=== PATIENT | female | born 1990 | race Caucasian/White ===

== ENCOUNTER 2017-12-10 21:51 | Inpatient (IN) | payer OTHER ==
[2017-12-10] MEDS ORDERED: Butorphanol Tartrate 1 MG/ML VIAL SLOW IVP PRN (22:23)
[2017-12-10] MEDS ORDERED: Lidocaine 1% (PF) 30 ML VIAL SC PRN (22:23)
[2017-12-10] MEDS ORDERED: Promethazine HCl 25 MG/ML VIAL IM PRN (22:23)
[2017-12-10] MEDS ORDERED: HYDROcodone/Acetaminophen 5/325 mg Tablet PO PRN ×2 (22:23)
[2017-12-10] MEDS: Lactated Ringer's 1,000 ML IV SCH (22:28)
--- NOTE | 2017-12-10 22:28 | PDOC.LDHP ---
Labor and Delivery H&P HPI: @5328 Location: L&D patient of outside MD Reason for eval: contractions since yesterday pm HPI: 27 yo with 3 prior SVDs (last 11/2016) here at term (38 weeks) by her account, with contractions. No VB or ROM. Denies issues. Came here for labor. her MD does not come here according to her. States all labs were "normal " in . reports FM. review of systems: complete ROS completed and as per HPI. Current gestational age (weeks): 38 Dating criteria: last menstrual period Grav: 4 Para: 3 (Last was 11/2016) Current complications: none Abnormal US findings: No (unknown) Current medications: pre- vitamins Previous surgical history: none Allergies/Adverse Reactions: Allergies Allergy/AdvReac Type Severity Reaction Status Date / Time azithromycin Allergy Short of Verified 11/22/16 22:34 Breath - Physical Exam General: NAD Heart: RRR Lungs: CTAB Abdomen: gravid Extremeties: no edema FHT: category 1 [place] contractions every: every 3-5 - Vaginal Exam cm dilated: 6 Effacement: 75% - Assessment L&D Assessment: term patient in labor - Plan Plan: admit to L&D, labor augmentation if indicated, informed consent obtained, anesthesia consult for pain management, other (Unknown GBS, and no risk factors. Will notify pedi. Order routine OB labs. Get GC/Chl from vaginal swab. Await labor progress.)
[2017-12-10 22:50] LABS: Hemoglobin 8.6 g/dL (12.0-16.0); Mean Corpuscular HGB CONC 33.1 g/dL (32.0-36.0); Mean Corpuscular Hemoglobin 24.1 pg (27.0-31.0); Mean Corpuscular Volume 72.8 fl (81.0-99.0); Platelet Count 212 thou/uL (130-400); Red Blood Cell (RBC) Count 3.57 mill/uL (4.20-5.40); White Blood Cell (WBC) Count 9.2 thou/uL (4.8-10.8)
[2017-12-10] MEDS ORDERED: DISCONTINUE ALL PREVIOUS NARCOTICS FS SCH (23:00)
[2017-12-10 23:19] VITALS: BMI 24.7
[2017-12-10] MEDS: Bupivacaine 0.5% 20 ML, fentaNYL Citrate/PF 400 MCG in Sodium Chloride 0.9% 72 ML EPIDURAL SCH (23:56)
[2017-12-11] MEDS ORDERED: Lidocaine 1% (PF) 30 ML VIAL SC PRN (00:12)
[2017-12-11] MEDS ORDERED: NS / Oxytocin 40 units/1000ml 1,000 ML IV PRN (00:12)
--- NOTE | 2017-12-11 00:12 | PDOC.EVN ---
Event Note - Event Note Event Note: [facility] record states GBS positive..will order PCN
[2017-12-11] MEDS ORDERED: Penicillin G Potassium 5 MILL.UNITS in Sodium Chloride 0.9% 100 ML IVPB SCH (00:15)
--- NOTE | 2017-12-11 00:15 | PDOC.EVN ---
Event Note - Event Note Event Note: HCT 26...noted
[2017-12-11 00:53] LABS: Amphetamine Not Detected (NotDetected); Barbiturates Screen Not Detected (NotDetected); Benzodiazepine Screen Not Detected (NotDetected); Cocaine Metabolite Screen Not Detected (NotDetected); Medtox Control Line Valid? VALID (VALID); Medtox Reader # READER 4; Methadone Not Detected (NotDetected); Methamphetamine Not Detected (NotDetected); Opiate Screen Not Detected (NotDetected); Oxycodone Screen Not Detected (NotDetected); Phencyclidine (PCP) Not Detected (NotDetected); THC/Cannabinoid Screen Not Detected (NotDetected); Tricyclic Screen Not Detected (NotDetected)
[2017-12-11 01:16] LABS: Syphilis Antibody Nonreactive (Nonreactive); Syphilis Antibody Index 0.02 S/CO (<1.00 Non-Reactive)
[2017-12-11] MEDS: Lactated Ringer's 1,000 ML IV SCH ×2 (01:18→07:43)
[2017-12-11 01:27] LABS: HBSAg Index 0.19 S/CO (0-0.99); HIV (1/2) Antibody/Antigen Non-Reactive (NonReactive); HIV 1/2 INDEX 0.09 S/CO (<1.00); Hep B Surf Ag Non-Reactive S/CO (NonReactive)
--- NOTE | 2017-12-11 04:04 | PDOC.LDPN ---
Labor & Delivery Progress Note - Subjective Subjective: comfortable (has epidural) - Objective Vital signs reviewed and normal: yes Uterine fundus: non tender SVE: per RN Dilation: 6 Effacement: 75% Station: -1 FHT: category 1 [place] contractions every: every 4-6 - Assessment (1) Active labor at term Code(s): [id number] - Current Visit: Yes Status: Acute (2) Anemia affecting Code(s): O99.019 - ANEMIA COMPLICATING , UNSPECIFIED TRIMESTER Current Visit: Yes Status: Acute Plan: continue plan of care, other (Will recheck in 1-2 hours and if not changed , will AROM and place IUPC.)
[2017-12-11] MEDS ORDERED: ePHEDrine/0.9% NaCl/PF SYRINGE 50 mg/10 ml SLOW IVP PRN (04:52)
[2017-12-11] MEDS ORDERED: diphenhydrAMINE 50 MG/ML VIAL IVP PRN (04:52)
[2017-12-11] MEDS ORDERED: Ondansetron HCl/PF 4 MG/2 ML Vial IVP PRN (04:52)
[2017-12-11] MEDS ORDERED: Promethazine HCl 25 MG/ML VIAL IM PRN (04:52)
[2017-12-11] MEDS ORDERED: Lactated Ringer's 500 ML IV PRN (04:52)
[2017-12-11] MEDS ORDERED: Naloxone HCl 0.4 mg/ml Vial IV PRN ×2 (04:52)
[2017-12-11] MEDS ORDERED: Acetaminophen 325 MG TAB PO PRN (04:52)
[2017-12-11] MEDS ORDERED: Hydrocerin (Eucerin) Cream 120 gm Jar TOP PRN (04:52)
[2017-12-11] MEDS ORDERED: Zolpidem Tartrate 5 MG TAB PO PRN (04:54)
[2017-12-11] MEDS: Penicillin G 2.5 MILL.units 2.5 MILL.UNITS in Premix Bag 1 BAG IVPB SCH ×2 (05:17→18:21)
--- NOTE | 2017-12-11 06:37 | PDOC.LDPN ---
Labor & Delivery Progress Note - Objective Vital signs reviewed and normal: yes General: NAD Uterine fundus: non tender SVE: by me at 0630 Dilation: 7-8 Effacement: 75% Station: -1 FHT: category 1 [place] contractions every: every 4-5; IUPC placed Other exam findings: Copious clear fluid at ROM, cephalic presentation AROM: clear fluid IUPC placed: yes - Assessment (1) Active labor at term Code(s): [id number] - Current Visit: Yes Status: Acute (2) Anemia affecting Code(s): O99.019 - ANEMIA COMPLICATING , UNSPECIFIED TRIMESTER Current Visit: Yes Status: Acute Qualifiers: Trimester: third trimester Qualified Code(s): O99.013 - Anemia complicating , third trimester Plan: labor augmentation, pitocin for augmentation, other (AROM performed to place IUPC and to start pitocin. Plan D/W patinet. Doppler still in use for FHTs.)
--- NOTE | 2017-12-11 06:46 | PDOC.EVN ---
Event Note - Event Note Event Note: Decel for 4-5 minutes prolonged decel to 80s after AROM. Please see annotations on monitor in QS. I evaluated the patient at bedside during the decel. Exam by me: /-1/ cephalic...no prolapsed cord felt. sclap stim with good accel response. Mother on her side. FHTs now 120s. I have notified vinod GARG to keep her notified.
--- NOTE | 2017-12-11 07:45 | PDOC.EVN ---
Event Note - Event Note Event Note: Pitocin start I have just reviewed the herat tone tracing again (@745).. Early decels with occasional small varibales. Contraction pattern is not adequate. OK to start pitocin for augmentation.
[2017-12-11] MEDS: NS w/ Oxytocin 10 units 500 ML IV SCH (07:51)
[2017-12-11] MEDS ORDERED: Bupivacaine 0.5% 20 ML, fentaNYL Citrate/PF 400 MCG in Sodium Chloride 0.9% 72 ML EPIDURAL SCH (08:00)
[2017-12-11] MEDS ORDERED: DISCONTINUE ALL PREVIOUS NARCOTICS FS SCH (08:00)
--- NOTE | 2017-12-11 08:40 | PDOC.EVN ---
Event Note - Event Note Event Note: Assumed care this AM. Report given to me by Dr. Mcintyre. Multip at term in labor, on pitocin, now 8 cm. Fhts are reassuring with early decels seen. Watch progress, expect .
[2017-12-11] MEDS: Bupivacaine 0.5% 20 ML, fentaNYL Citrate/PF 400 MCG in Sodium Chloride 0.9% 72 ML EPIDURAL SCH (08:55)
[2017-12-11] MEDS: NS / Oxytocin 40 units/1000ml 1,000 ML IV PRN ×2 (09:10→10:53)
--- NOTE | 2017-12-11 09:31 | PDOC.OPDEL ---
OB Operative/Delivery Note Delivery Dr/Surgeon: Kaitlynn Pre-Delivery Diagnosis: active labor Procedure/Post Delivery Dx: spontaneous vaginal delivery Anesthesia: epidural - Additional Findings/Plan Placenta delivered: spontaneous Repaired Obstetrical Laceration: none Estimated blood loss: 200 Compilations/Other Findings: Viable female, delivered OA over intact perineum. Apgars 8/9. Baby doing well. Mom to recover in L&D. Post delivery plan: routine recovery
[2017-12-11] MEDS ORDERED: Preparation H Ointment 28 GM TUBE PR PRN (12:11)
[2017-12-11] MEDS ORDERED: Bisacodyl 10 MG SUPP PR PRN (12:11)
[2017-12-11] MEDS ORDERED: Adacel (T-DAP) 0.5 ML VIAL IM ONE (12:11)
[2017-12-11] MEDS ORDERED: Milk Of Magnesia 30 ML UDCUP PO PRN (12:11)
[2017-12-11] MEDS ORDERED: Benzocaine/Menthol 20-0.5% 60 ML CAN TOP PRN (12:11)
[2017-12-11] MEDS ORDERED: diphenhydrAMINE 25 MG CAP PO PRN (12:11)
[2017-12-11] MEDS: Ibuprofen 800 MG TAB PO PRN ×2 (14:08→22:15)
[2017-12-11] MEDS: Ferrous Sulfate 325 MG TAB PO SCH (17:33)
[2017-12-11] MEDS ORDERED: Ibuprofen 800 MG TAB PO PRN (21:40)
[2017-12-11] MEDS: Docusate Calcium (SURFAK) 240 MG CAP PO SCH (22:15)
--- NOTE | 2017-12-12 06:16 | PDOC.PP ---
Post Progress Note Post Day #: PPD#1 Subjective: Resting comfortably w/o complaints PO intake tolerated: yes Ambulation: yes Vital Signs (12 hours) Temp Pulse Resp BP Pulse Ox 12/12/17 00:15 98.2 F 73 20 12/12/17 00:10 98.4 F 70 18 113/74 12/11/17 19:30 98.2 F 73 20 112/60 98 Weight Weight 63.503 kg - Physical Examination General: NAD Fundus firm & at: below umbilicus Extremities: negative homans (B) Psychiatric: A&Ox3, normal affect Result Diagrams: 12/10/17 22:37 Additional Labs: Post Labs Blood Type A NEGATIVE 12/10/17 22:37 Hep Bs Antigen Non-Reactive S/CO (NonReactive) 12/10/17 22:37 - Assessment/Plan Doing well s/p . Rhogam has been given. Routine PP care.
[2017-12-12] MEDS: NS w/ Oxytocin 10 units 500 ML IV SCH (07:03)
[2017-12-12] MEDS: Docusate Calcium (SURFAK) 240 MG CAP PO SCH (07:44)
[2017-12-12] MEDS: Ferrous Sulfate 325 MG TAB PO SCH ×2 (07:44→17:25)
[2017-12-12 11:47] VITALS: BP 118/78; TEMP 97.9
--- NOTE | 2017-12-12 13:16 | PDOC.EVN ---
Event Note - Event Note Event Note: DISCHARGE NOTE Discharge Date: 12/12/17 DX: Vaginal Delivery Routine care Patient was admitted on 12/10/17 for labor at term, progressing to 12/11/17 vaginal delivery. Patient had care at [facility] with [facility] history. Patient did well on day 2. Patient requested discherge to home on 12/12, and CPS has had their evaluation. Vitals stable at discharge. No vag bleed reported or noted. Disposition: home Follow up: 3 weeks with WC.
[2017-12-12] MEDS ORDERED: Bupivacaine 0.25% HCL 30 ML VIAL ONE (17:31)
== END 2017-12-12 17:44 | disposition home or self-care (01) | DRG 775 ==
LOC: L&D/OP 21:51 → L&D 12-11 00:40 → 3SE 12-11 12:19
PROVIDERS: ADMIT Obstetrics & Gynecology; ATTEND Obstetrics & Gynecology
PROC: 10E0XZZ Delivery of Products of Conception, External Approach (ICD-10-PCS; principal; 2017-12-11)
PROC: 10H07YZ Insertion of Other Device into Products of Conception, Via Natural or Artificial Opening (ICD-10-PCS; 2017-12-11)
PROC: 10907ZC Drainage of Amniotic Fluid, Therapeutic from Products of Conception, Via Natural or Artificial Opening (ICD-10-PCS; 2017-12-11)
PROC: 3E0334Z Introduction of Serum, Toxoid and Vaccine into Peripheral Vein, Percutaneous Approach (ICD-10-PCS; 2017-12-11)
DX: O99.02 Anemia complicating childbirth (principal); Z3A.38 38 weeks gestation of pregnancy; Z37.0 Single live birth; Z87.891 Personal history of nicotine dependence; F31.9 Bipolar disorder, unspecified; O99.824 Streptococcus B carrier state complicating childbirth
CPT/HCPCS: 36415; 51702; 80306; 85027; 85461; 86762; 86780; 86850; 86870; 86900; 86901; 86922; 87340; 87389; 90384; 96372; 99285; A4216; J1200; J2540; J3010; J3490; J7050; S0020

== ENCOUNTER 2021-06-29 13:41 | Outpatient (CLI) | payer MEDICAID | END 2021-06-29 13:42 | disposition home or self-care (01) | LOC: BICULT 13:41 | PROVIDERS: ATTEND Advanced Practice Midwife | DX: N63.41 Unspecified lump in right breast, subareolar (principal) ==